=== PATIENT | male | born 1970 | race African-American/Black ===

== ENCOUNTER 2016-07-10 07:35 | Emergency (ER) | payer MEDICAID ==
[~2016-07-10] VITALS: Ht 177.8 cm; Wt 104.5 kg
[~2016-07-10 07:35] MED LIST: AMOXICILLIN 50500 MG PO; BACTRIM DS 8001 TAB PO; BP MED; CEPHALEXIN500 M1 PO; CLEOCIN HC150 MG/CAP PO; CLEOCIN HCL300 MG PO; DIABETES MED; DILAUDID 2MG TAB2 MG PO; DILAUDID 4MG TAB4 MG PO; DOXYCYCLINE 10100 MG PO; FLEXERIL 1010 MG/TAB PO; GLUCOPHAGE1000 MG PO; HCTZ 25MG TAB25 MG PO; HYPERTENSION MED; JANUMET 1000 MG1 TA1 PO; JANUVIA 100MG100 MG PO; JANUVIA100 MG PO; LEVEMIR FLEXPEN SC; LEVEMIR100 U/ML SC; LEVEMIR100 U/ML SQ; LORTAB 5/500 501 TAB PO; MS CONTIN 330 MG/TAB PO; MS CONTIN30 MG PO; MSIR30 MG PO; NAPROSYN500 MG PO; NORCO 325 MG-51 TAB PO; NORVASC 10MG10 MG PO; NORVASC 5MG5 MG/TAB PO; NORVASC5 MG PO; NOVOLOG 100U100 U/M1 SC; NOVOLOG FLEX100 U/ML SC; NOVOLOG FLEX100 U/ML SQ; PEN-VEE K500 MG PO; PERCOCET 325 MG1 TA2 PO; PERCOCET 325 MG1 TAB PO; PHENERGAN 25 TA25 MG PO; PREDNISONE10 MG PO; PRINIVIL10 MG PO; PRINIVIL20 MG PO; PRINIVIL40 MG PO; PROVENTIL0.09 MG/A1 IH; PROVERA 10MG10 MG PO; ROXICODONE 55 MG/TAB PO; ZANTAC 300300 MG PO; ZESTRIL 20MG TA20 MG PO; ZESTRIL40 MG PO; ZITHROMAX Z PA250 MG PO; ZOFRAN 4MG T4 MG/TAB PO
[2016-07-10 07:40] VITALS: TEMP 99.3
[2016-07-10 08:57] LABS: VENOUS BLOOD GAS BE 3.3 (-4-4); VENOUS BLOOD GAS SAO2 70.6 % (60-80)
[2016-07-10 08:58] LABS: VENOUS BLOOD GAS SITE VENIPUNCTURE
[2016-07-10 09:17] LABS: ADJUSTED CALCIUM 9.7 mg/dL (8.4-10.2); ALANINE AMINOTRANSFERASE 56 U/L (21-72); ALBUMIN 4.3 gm/dL (3.5-5.0); ALKALINE PHOSPHATASE 106 U/L (50-136); ANION GAP 13 mmol/L (7-16); BILIRUBIN,TOTAL 0.7 mg/dL (0.0-1.0); BLOOD UREA NITROGEN 8 mg/dL (9-20); CALCIUM 9.9 mg/dL (8.4-10.2); CARBON DIOXIDE 26 mmol/L (22-30); CHLORIDE 96 mmol/L (98-107); CREATININE, serum 0.68 mg/dL (0.66-1.25); GLUCOSE 338 mg/dL (74-106); MAGNESIUM 1.9 mg/dL (1.6-2.3); POTASSIUM 4.5 mmol/L (3.4-5.0); SODIUM 135 mmol/L (137-145)
[2016-07-10] MEDS ORDERED: NORCO 325 MG-51 TAB PO (09:32)
[2016-07-10] MEDS ORDERED: DOXYCYCLINE 10100 MG PO (09:32)
[2016-07-10] MEDS ORDERED: LEVEMIR FLEX100 U/ML SQ (09:32)
[2016-07-10] MEDS ORDERED: NOVOLOG FLEX100 U/ML SQ (09:34)
[2016-07-10] MEDS ORDERED: ZESTRIL40 MG PO (09:34)
[2016-07-10 09:53] VITALS: BP 205/104; PULSE 90
[2016-07-10] MEDS ORDERED: HCTZ 25MG TAB25 MG PO (10:02)
[2016-07-10 11:26] LABS: HEMATOCRIT 44.4 % (42.0-52.0); HEMOGLOBIN 14.2 g/dl (13.5-18.0); MEAN CELL VOLUME 82 fl (80.0-100.0); MEAN CORPUSCULAR HEMOGLOBIN 26 pg (27.0-31.0); MEAN CORPUSCULAR HGB CONC 32 g/dl (33.0-37.0); MEAN PLATELET VOLUME 9.6 fl (7.4-10.4); PLATELET COUNT 380 K/mm3 (130-400); RED BLOOD COUNT 5.42 M/mm3 (4.20-5.60); REDCELL DISTRIBUTION WIDTH-CV 13.2 % (11.5-14.5); WHITE BLOOD COUNT 6.8 K/mm3 (4.8-10.8)
[2016-07-10 11:29] LABS: ADD PATHOLOGY DIFF REVIEW NO
[2016-07-10 11:45] LABS: BAND 4 % (0-10); EOSINOPHIL 3 % (0-4); NEUTROPHILS 53 % (42.0-75.2); PLATELET ESTIMATE INCREASED (NORMAL); TOTAL CELLS COUNTED 100
== END 2016-07-10 09:44 | disposition home or self-care (01) ==
LOC: COL.ER 07:35
PROVIDERS: Emergency Medicine; Physician Assistant
DX: L02.416 Cutaneous abscess of left lower limb (principal); E11.65 Type 2 diabetes mellitus with hyperglycemia; I10 Essential (primary) hypertension; Z79.4 Long term (current) use of insulin; T38.3X6A Underdosing of insulin and oral hypoglycemic [antidiabetic] drugs, initial encounter; T46.5X6A Underdosing of other antihypertensive drugs, initial encounter; Z91.138 Patient's unintentional underdosing of medication regimen for other reason; Z53.29 Procedure and treatment not carried out because of patient's decision for other reasons; F17.210 Nicotine dependence, cigarettes, uncomplicated
CPT/HCPCS: J1170

== ENCOUNTER 2016-09-08 11:06 | Emergency (ER) | payer MEDICAID ==
[~2016-09-08] VITALS: Ht 175.3 cm; Wt 100.0 kg
[~2016-09-08 11:06] MED LIST changes: +LEVEMIR FLEX100 U/ML SQ
[2016-09-08 11:15] VITALS: BP 156/107; PULSE 90; TEMP 99
[2016-09-08] MEDS ORDERED: NORCO 325 MG-51 TAB PO (12:14)
[2016-09-08] MEDS ORDERED: CLEOCIN HCL300 MG PO (12:14)
== END 2016-09-08 12:27 | disposition home or self-care (01) ==
LOC: COL.ER 11:06
DX: K04.7 Periapical abscess without sinus (principal); K03.81 Cracked tooth; E10.9 Type 1 diabetes mellitus without complications; F17.210 Nicotine dependence, cigarettes, uncomplicated; Z79.4 Long term (current) use of insulin; Z86.14 Personal history of Methicillin resistant Staphylococcus aureus infection

== ENCOUNTER 2016-09-20 09:29 | Emergency (ER) | payer MEDICAID ==
[~2016-09-20] VITALS: Ht 175.3 cm; Wt 100.0 kg
[2016-09-20 09:42] VITALS: BP 180/114; PULSE 83; TEMP 98.7
== END 2016-09-20 11:02 | disposition home or self-care (01) ==
LOC: COL.ER 09:29
DX: K02.9 Dental caries, unspecified (principal); E11.9 Type 2 diabetes mellitus without complications; Z79.4 Long term (current) use of insulin

== ENCOUNTER → 2016-12-06 | Outpatient (CLI) | payer MEDICAID | LOC: COL.LAB 09:20 | DX: Z02.89 Encounter for other administrative examinations (principal) ==

== ENCOUNTER → 2017-01-11 | Outpatient (CLI) | payer MEDICAID | LOC: MHCPAIN 10:50 | DX: G89.29 Other chronic pain (principal); M47.817 Spondylosis without myelopathy or radiculopathy, lumbosacral region; M53.3 Sacrococcygeal disorders, not elsewhere classified; M79.2 Neuralgia and neuritis, unspecified; F17.210 Nicotine dependence, cigarettes, uncomplicated | CPT/HCPCS: G0463 ==

== ENCOUNTER 2017-08-20 12:03 | Emergency (ER) | payer MEDICAID ==
[~2017-08-20] VITALS: Ht 177.8 cm; Wt 90.9 kg
[2017-08-20 12:05] VITALS: TEMP 98.3
[2017-08-20] MEDS ORDERED: LEVEMIR100 U/ML SQ (12:17)
[2017-08-20] MEDS ORDERED: LIORESAL 1010 MG/TAB PO (12:18)
[2017-08-20] MEDS ORDERED: NOVOLOG 100U100 U/M1 SQ (12:18)
[2017-08-20 13:10] VITALS: BP 155/105; PULSE 89
[2017-08-20] MEDS ORDERED: NORCO 325 MG-51 TAB PO (13:13)
== END 2017-08-20 13:20 | disposition home or self-care (01) ==
LOC: COL.ER 12:03
DX: S60.221A Contusion of right hand, initial encounter (principal); G89.29 Other chronic pain; M54.5 Low back pain; Z79.4 Long term (current) use of insulin; W22.8XXA Striking against or struck by other objects, initial encounter

== ENCOUNTER 2017-11-28 16:17 | Inpatient (IN) | payer MEDICAID ==
[2017-11-28] VITALS (120 sets, daily range): BP systolic 1140; BP diastolic 89; PULSE 78; TEMP 98.5; O2SAT 98–100
[~2017-11-28] VITALS: Ht 177.8 cm; Wt 91.2 kg
[~2017-11-28 16:17] MED LIST changes: +LIORESAL 1010 MG/TAB PO; +NOVOLOG 100U100 U/M1 SQ
[2017-11-28 17:19] LABS: BASO # 0.1 (0.0-0.2); BASO % 1.1 % (0.0-2.0); EOS # 0.2 (0.0-0.7); EOS % 2.6 % (0-4.0); GRAN # 3.8 (1.4-6.5); GRAN % 53.9 % (42.2-75.2); HEMATOCRIT 40.5 % (42.0-52.0); HEMOGLOBIN 13.6 g/dl (13.5-18.0); LYMPH # 2.4 (1.2-3.4); LYMPH % 34.4 % (20.0-51.0); MEAN CELL VOLUME 81 fl (80.0-100.0); MEAN CORPUSCULAR HEMOGLOBIN 27 pg (27.0-31.0); MEAN CORPUSCULAR HGB CONC 34 g/dl (33.0-37.0); MEAN PLATELET VOLUME 9.8 fl (7.4-10.4); MONO # 0.5 (0.1-0.6); MONO % 7.7 % (1.7-9.3); PLATELET COUNT 245 K/mm3 (130-400); RED BLOOD COUNT 4.98 M/mm3 (4.20-5.60); REDCELL DISTRIBUTION WIDTH-CV 14.5 % (11.5-14.5)
[2017-11-28 17:41] LABS: PROTHROMBIN TIME 11.6 SECONDS (9.7-12.8)
[2017-11-28 17:43] LABS: PARTIAL THROMBOPLASTIN TIME 40.7 SECONDS (26.0-37.0)
[2017-11-28 17:44] LABS: ALANINE AMINOTRANSFERASE 71 U/L (21-72); ALBUMIN 4.7 gm/dL (3.5-5.0); ALKALINE PHOSPHATASE 65 U/L (50-136); ANION GAP 8 mmol/L (7-16); AST,SGOT 46 U/L (15-37); BILIRUBIN,TOTAL 0.5 mg/dL (0.0-1.0); BLOOD UREA NITROGEN 16 mg/dL (9-20); CARBON DIOXIDE 28 mmol/L (22-30); CHLORIDE 97 mmol/L (98-107); CREATININE, serum 1.03 mg/dL (0.66-1.25); GLUCOSE 177 mg/dL (74-106); POTASSIUM 4.1 mmol/L (3.4-5.0); SODIUM 133 mmol/L (137-145); TOTAL PROTEIN 8.6 gm/dL (6.4-8.2)
[2017-11-28 18:00] LABS: TROPONIN-I < 0.012 ng/mL (0.000-0.034)
[2017-11-29] VITALS (623 sets, daily range): BP systolic 141–169; BP diastolic 90–124; PULSE 65–86; TEMP 97.5–99.1; O2SAT 90–100
[2017-11-30 01:56] VITALS: BP 152/95; PULSE 70; TEMP 97.5
[2017-11-30 08:31] VITALS: BP 144/94; PULSE 71; TEMP 98.3
[2017-11-30] MEDS ORDERED: PLAVIX 75MG TAB75 MG PO (09:30)
[2017-11-30] MEDS ORDERED: ASPIRIN 81M81 MG/TA2 PO (09:32)
[2017-11-30] MEDS ORDERED: LIPITOR 40MG TA40 MG PO (09:33)
== END 2017-11-30 12:30 | disposition home or self-care (01) | DRG 65 ==
LOC: COL.ER 16:17 → ICU 18:09 → MEDICAL 11-29 14:05 → ICU 11-29 14:05 → MEDICAL 11-29 14:30
PROVIDERS: Family Medicine
DX: I63.9 Cerebral infarction, unspecified (principal); I67.4 Hypertensive encephalopathy; R47.1 Dysarthria and anarthria; I16.0 Hypertensive urgency; R47.81 Slurred speech; I10 Essential (primary) hypertension; E11.42 Type 2 diabetes mellitus with diabetic polyneuropathy; R29.700 NIHSS score 0; Z79.4 Long term (current) use of insulin; F17.210 Nicotine dependence, cigarettes, uncomplicated
CPT/HCPCS: 99223-AI; 99239; A9585; G8978-GP; G8979-GP; G8996-GN; G8997-GN; G8998-GN; J0360; J1170; J1650; J1815; J2405; J7050

== ENCOUNTER 2018-09-13 08:01 | Emergency (ER) | payer MEDICAID ==
[~2018-09-13] VITALS: Ht 177.8 cm; Wt 95.5 kg
[~2018-09-13 08:01] MED LIST changes: +ASPIRIN 81M81 MG/TA2 PO; +LIPITOR 40MG TA40 MG PO; +PLAVIX 75MG TAB75 MG PO
[2018-09-13 08:07] VITALS: TEMP 98.3
[2018-09-13 10:26] LABS: BASO # 0.1 (0.0-0.2); BASO % 1.5 % (0.0-2.0); EOS # 0.2 (0.0-0.7); EOS % 2.8 % (0-4.0); GRAN # 3.8 (1.4-6.5); GRAN % 46.3 % (42.2-75.2); HEMOGLOBIN 12.2 g/dl (13.5-18.0); LYMPH # 3.3 (1.2-3.4); LYMPH % 41.1 % (20.0-51.0); MEAN CELL VOLUME 81 fl (80.0-100.0); MEAN CORPUSCULAR HEMOGLOBIN 27 pg (27.0-31.0); MEAN CORPUSCULAR HGB CONC 33 g/dl (33.0-37.0); MEAN PLATELET VOLUME 9.2 fl (7.4-10.4); MONO # 0.6 (0.1-0.6); MONO % 7.8 % (1.7-9.3); PLATELET COUNT 345 K/mm3 (130-400); RED BLOOD COUNT 4.55 M/mm3 (4.20-5.60); REDCELL DISTRIBUTION WIDTH-CV 14.5 % (11.5-14.5)
[2018-09-13 10:28] LABS: HEMATOCRIT 36.9 % (42.0-52.0)
[2018-09-13 10:45] LABS: ALANINE AMINOTRANSFERASE 20 U/L (21-72); ALBUMIN 3.9 gm/dL (3.5-5.0); ALKALINE PHOSPHATASE 69 U/L (50-136); ANION GAP 11 mmol/L (7-16); AST,SGOT 54 U/L (15-37); BILIRUBIN,TOTAL 0.6 mg/dL (0.0-1.0); BLOOD UREA NITROGEN 5 mg/dL (9-20); CALCIUM 9.5 mg/dL (8.4-10.2); CARBON DIOXIDE 25 mmol/L (22-30); CHLORIDE 104 mmol/L (98-107); CREATININE, serum 0.67 (0.66-1.25); GLUCOSE 128 mg/dL (74-106); LIPASE 19 U/L (23-300); POTASSIUM 4.3 mmol/L (3.4-5.0); SODIUM 140 mmol/L (137-145); TOTAL PROTEIN 7.4 gm/dL (6.4-8.2)
[2018-09-13 10:46] LABS: C-REACTIVE PROTEIN < 0.5 mg/dL (0.0-0.9)
[2018-09-13 10:53] LABS: TROPONIN-I < 0.012 ng/mL (0.000-0.035)
[2018-09-13] MEDS ORDERED: PHENERGAN 25 TA25 MG PO (11:00)
[2018-09-13] MEDS ORDERED: NAPROXEN 3375 MG/TAB PO (11:00)
[2018-09-13 11:32] VITALS: BP 136/94; PULSE 74
== END 2018-09-13 11:32 | disposition home or self-care (01) ==
LOC: COL.ER 08:01
PROVIDERS: Emergency Medicine
DX: R07.89 Other chest pain (principal); I10 Essential (primary) hypertension; F17.210 Nicotine dependence, cigarettes, uncomplicated; E78.5 Hyperlipidemia, unspecified; E11.9 Type 2 diabetes mellitus without complications; Z79.02 Long term (current) use of antithrombotics/antiplatelets; Z79.4 Long term (current) use of insulin
CPT/HCPCS: J0780; J1885; J7030

== ENCOUNTER 2018-09-20 12:50 | Emergency (ER) | payer MEDICAID ==
[~2018-09-20 12:50] MED LIST changes: +NAPROXEN 3375 MG/TAB PO
[2018-09-20 12:53] VITALS: TEMP 99.5
[2018-09-20 14:31] LABS: BASO % 0.8 % (0.0-2.0); EOS # 0.1 (0.0-0.7); EOS % 1.1 % (0-4.0); GRAN # 2.6 (1.4-6.5); GRAN % 50.4 % (42.2-75.2); HEMATOCRIT 37.7 % (42.0-52.0); HEMOGLOBIN 12.2 g/dl (13.5-18.0); LYMPH # 2.1 (1.2-3.4); LYMPH % 39.3 % (20.0-51.0); MEAN CELL VOLUME 83 fl (80.0-100.0); MEAN CORPUSCULAR HEMOGLOBIN 27 pg (27.0-31.0); MEAN CORPUSCULAR HGB CONC 32 g/dl (33.0-37.0); MEAN PLATELET VOLUME 9.1 fl (7.4-10.4); MONO # 0.4 (0.1-0.6); PLATELET COUNT 378 K/mm3 (130-400); RED BLOOD COUNT 4.57 M/mm3 (4.20-5.60); REDCELL DISTRIBUTION WIDTH-CV 14.4 % (11.5-14.5)
[2018-09-20 14:34] LABS: PROTHROMBIN TIME 12.2 SECONDS (9.7-12.8)
[2018-09-20 14:35] LABS: ALANINE AMINOTRANSFERASE 25 U/L (21-72); ALBUMIN 4.1 gm/dL (3.5-5.0); ALKALINE PHOSPHATASE 72 U/L (50-136); ANION GAP 10 mmol/L (7-16); AST,SGOT 35 U/L (15-37); BILIRUBIN,TOTAL 0.5 mg/dL (0.0-1.0); BLOOD UREA NITROGEN 9 mg/dL (9-20); CALCIUM 9.6 mg/dL (8.4-10.2); CARBON DIOXIDE 26 mmol/L (22-30); CHLORIDE 100 mmol/L (98-107); CREATININE, serum 0.72 (0.66-1.25); GLUCOSE 154 mg/dL (74-106); LIPASE 27 U/L (23-300); POTASSIUM 4.2 mmol/L (3.4-5.0); SODIUM 137 mmol/L (137-145); TOTAL PROTEIN 7.5 gm/dL (6.4-8.2)
[2018-09-20 15:00] LABS: TROPONIN-I < 0.012 ng/mL (0.000-0.035)
[2018-09-20 16:45] VITALS: BP 150/108
[2018-09-20] MEDS ORDERED: FLEXERIL 1010 MG/TAB PO (17:01)
[2018-09-20 17:45] VITALS: PULSE 70
== END 2018-09-20 17:47 | disposition home or self-care (01) ==
LOC: COL.ER 12:52
PROVIDERS: Emergency Medicine
DX: R07.89 Other chest pain (principal); I10 Essential (primary) hypertension; E78.5 Hyperlipidemia, unspecified; F17.210 Nicotine dependence, cigarettes, uncomplicated; Z79.02 Long term (current) use of antithrombotics/antiplatelets; Z79.4 Long term (current) use of insulin
CPT/HCPCS: J1630; J1885; J2060

== ENCOUNTER 2018-10-04 10:40 | Emergency (ER) | payer MEDICAID ==
[~2018-10-04] VITALS: Ht 175.3 cm; Wt 90.9 kg
[2018-10-04 11:32] LABS: BASO # 0.1 (0.0-0.2); BASO % 1.2 % (0.0-2.0); EOS # 0.1 (0.0-0.7); EOS % 1.5 % (0-4.0); GRAN # 4.4 (1.4-6.5); GRAN % 60.1 % (42.2-75.2); HEMATOCRIT 42.2 % (42.0-52.0); HEMOGLOBIN 13.9 g/dl (13.5-18.0); LYMPH # 2.3 (1.2-3.4); MEAN CELL VOLUME 82 fl (80.0-100.0); MEAN CORPUSCULAR HEMOGLOBIN 27 pg (27.0-31.0); MEAN CORPUSCULAR HGB CONC 33 g/dl (33.0-37.0); MEAN PLATELET VOLUME 8.9 fl (7.4-10.4); MONO # 0.4 (0.1-0.6); MONO % 5.8 % (1.7-9.3); PLATELET COUNT 444 K/mm3 (130-400); RED BLOOD COUNT 5.16 M/mm3 (4.20-5.60); REDCELL DISTRIBUTION WIDTH-CV 14.3 % (11.5-14.5)
[2018-10-04 11:41] LABS: PROTHROMBIN TIME 11.7 SECONDS (9.7-12.8)
[2018-10-04 11:44] LABS: ALANINE AMINOTRANSFERASE 28 U/L (21-72); ALBUMIN 4.7 gm/dL (3.5-5.0); ALKALINE PHOSPHATASE 82 U/L (50-136); ANION GAP 13 mmol/L (7-16); AST,SGOT 46 U/L (15-37); BILIRUBIN,TOTAL 0.6 mg/dL (0.0-1.0); BLOOD UREA NITROGEN 10 mg/dL (9-20); CALCIUM 10.3 mg/dL (8.4-10.2); CARBON DIOXIDE 24 mmol/L (22-30); CHLORIDE 100 mmol/L (98-107); CREATININE, serum 0.78 (0.66-1.25); GLUCOSE 196 mg/dL (74-106); POTASSIUM 4.4 mmol/L (3.4-5.0); SODIUM 137 mmol/L (137-145)
[2018-10-04 11:59] LABS: TROPONIN-I < 0.012 ng/mL (0.000-0.035)
[2018-10-04] MEDS ORDERED: FLEXERIL 1010 MG/TAB PO (12:48)
[2018-10-04] MEDS ORDERED: NORVASC 5MG5 MG/TAB PO (12:58)
[2018-10-04 13:06] VITALS: BP 164/119; PULSE 108; TEMP 99.1
== END 2018-10-04 13:25 | disposition home or self-care (01) ==
LOC: COL.ER 10:40
PROVIDERS: Emergency Medicine
DX: R07.89 Other chest pain (principal); I10 Essential (primary) hypertension; E78.5 Hyperlipidemia, unspecified; F17.210 Nicotine dependence, cigarettes, uncomplicated; Z79.4 Long term (current) use of insulin; Z79.02 Long term (current) use of antithrombotics/antiplatelets
CPT/HCPCS: J1885; J2060; J2270

== ENCOUNTER 2021-08-24 08:19 | Emergency (ER) | payer MEDICAID ==
[~2021-08-24] VITALS: Ht 177.8 cm; Wt 113.6 kg
[2021-08-24 08:27] VITALS: TEMP 98.5
[2021-08-24] MEDS ORDERED: NAPROSYN500 MG PO (09:50)
[2021-08-24] MEDS ORDERED: ROBAXIN 50500 MG/TAB PO (09:50)
[2021-08-24 10:05] VITALS: BP 170/111; PULSE 82
== END 2021-08-24 10:05 | disposition home or self-care (01) ==
LOC: COL.ER 08:19
DX: M54.50 Low back pain, unspecified (principal); G89.29 Other chronic pain; Z87.39 Personal history of other diseases of the musculoskeletal system and connective tissue
CPT/HCPCS: J1885

== ENCOUNTER 2021-11-23 09:32 | Emergency (ER) | payer MEDICAID ==
[~2021-11-23] VITALS: Ht 177.8 cm; Wt 109.1 kg
[~2021-11-23 09:32] MED LIST changes: +ROBAXIN 50500 MG/TAB PO
[2021-11-23 09:57] VITALS: TEMP 98
[2021-11-23 10:46] LABS: COLLECTION METHOD CLEAN CATCH
[2021-11-23 11:00] LABS: SQUAMOUS EPITHELIAL 0-2 /hpf (0-10); URINE BACTERIA Rare /hpf (NONE SEEN); URINE RBC 0-2 /hpf (0-2)
[2021-11-23 11:01] LABS: URINE COLOR Yellow (YELLOW)
[2021-11-23 11:02] LABS: URINE APPEARANCE Clear (CLEAR/HAZY); URINE BLOOD Negative (NEGATIVE); URINE GLUCOSE 2+ (NEGATIVE); URINE KETONE Negative (NEGATIVE); URINE NITRATE Negative (NEGATIVE); URINE PROTEIN(semi-quant) TRACE (NEGATIVE); URINE UROBILINOGEN 0.2 E.U/dL (0.2-1.0)
[2021-11-23] MEDS ORDERED: NORCO 325 MG-51 TAB PO (11:58)
[2021-11-23] MEDS ORDERED: FLOMAX 0.40.4 MG/CAP PO (11:58)
[2021-11-23] MEDS ORDERED: LEVSIN0.125 M1 PO (11:58)
[2021-11-23 12:10] VITALS: BP 140/105; PULSE 65
== END 2021-11-23 12:10 | disposition home or self-care (01) ==
LOC: COL.ER 09:32
PROVIDERS: Emergency Medicine
DX: R39.198 Other difficulties with micturition (principal); E11.9 Type 2 diabetes mellitus without complications; E66.9 Obesity, unspecified; F17.210 Nicotine dependence, cigarettes, uncomplicated; Z68.34 Body mass index [BMI] 34.0-34.9, adult; Z28.311 Partially vaccinated for COVID-19; Z79.4 Long term (current) use of insulin
CPT/HCPCS: J1885

== ENCOUNTER 2022-01-06 09:22 | Emergency (ER) | payer MEDICAID ==
[~2022-01-06] VITALS: Ht 172.7 cm; Wt 108.6 kg
[~2022-01-06 09:22] MED LIST changes: +FLOMAX 0.40.4 MG/CAP PO; +LEVSIN0.125 M1 PO
[2022-01-06 09:40] VITALS: BP 129/88; TEMP 98.2
[2022-01-06] MEDS ORDERED: LIDOCAINE HCL100 M1 MM (10:45)
[2022-01-06 11:23] VITALS: PULSE 78
[2022-01-06 11:53] LABS: STREP SCREEN NEGATIVE
[2022-01-11] MEDS ORDERED: NORCO 325 MG-51 TAB PO (15:36)
[2022-01-11] MEDS ORDERED: MEDROL 4MG DOSPA4 MG PO (15:36)
== END 2022-01-06 11:23 | disposition home or self-care (01) ==
LOC: COL.ER 09:22
PROVIDERS: Physician Assistant
DX: M54.50 Low back pain, unspecified (principal); G89.29 Other chronic pain; K12.0 Recurrent oral aphthae; F17.210 Nicotine dependence, cigarettes, uncomplicated; Z87.39 Personal history of other diseases of the musculoskeletal system and connective tissue; Z28.311 Partially vaccinated for COVID-19
CPT/HCPCS: J2360

== ENCOUNTER 2022-04-11 06:56 | Emergency (ER) | payer MEDICAID ==
[~2022-04-11] VITALS: Ht 175.3 cm; Wt 107.3 kg
[~2022-04-11 06:56] MED LIST changes: +CIPRO 500MG TA500 MG PO; +LIDOCAINE HCL100 M1 MM; +MEDROL 4MG DOSPA4 MG PO; +MOTRIN 800800 MG/TAB PO
[2022-04-11 06:59] VITALS: TEMP 98
[2022-04-11 08:04] LABS: BASO # 0.1 K/mm3 (0.0-0.2); BASO % 1.3 % (0.0-2.0); EOS # 0.2 K/mm3 (0.0-0.7); EOS % 2.7 % (0.0-4.0); GRAN # 3.1 K/mm3 (1.4-6.5); GRAN % 45.3 % (42.2-75.2); HEMATOCRIT 46.2 % (42.0-52.0); HEMOGLOBIN 15.4 g/dl (13.5-18.0); LYMPH # 2.9 K/mm3 (1.2-3.4); LYMPH % 42.6 % (20.0-51.0); MEAN CELL VOLUME 81 fl (80.0-100.0); MEAN CORPUSCULAR HEMOGLOBIN 27 pg (27-31); MEAN CORPUSCULAR HGB CONC 33 g/dl (33.0-37.0); MEAN PLATELET VOLUME 9.8 fl (7.4-10.4); MONO # 0.5 K/mm3 (0.1-0.6); PLATELET COUNT 277 K/mm3 (130-400); RED BLOOD COUNT 5.72 M/mm3 (4.20-5.60); REDCELL DISTRIBUTION WIDTH-CV 14.1 % (11.5-14.5)
[2022-04-11 08:16] LABS: ALBUMIN 4.4 gm/dL (3.5-5.0); BILIRUBIN,TOTAL 0.7 mg/dL (0.2-1.2); CALCIUM 9.8 mg/dL (8.4-10.2); CREATININE, serum 1.3 mg/dL (0.72-1.25); TOTAL PROTEIN 8.2 gm/dL (6.2-8.1)
[2022-04-11 08:34] LABS: COLLECTION METHOD CLEAN CATCH
[2022-04-11] MEDS ORDERED: TENORMIN100 MG PO (08:50)
[2022-04-11] MEDS ORDERED: GLUCOTROL10 MG PO (08:51)
[2022-04-11] MEDS ORDERED: HCTZ 25MG TAB25 MG PO (08:52)
[2022-04-11 08:54] LABS: MUCOUS Present (NOT PRESENT); SQUAMOUS EPITHELIAL 0-2 /hpf (0-10); URINE BACTERIA None Seen /hpf (NONE SEEN)
[2022-04-11 08:55] LABS: PH 5.5 (5.0-8.5); URINE APPEARANCE Clear (CLEAR/HAZY); URINE BLOOD TRACE-INTACT (NEGATIVE); URINE COLOR Yellow (YELLOW); URINE GLUCOSE TRACE (NEGATIVE); URINE KETONE Negative (NEGATIVE); URINE NITRATE Negative (NEGATIVE); URINE PROTEIN(semi-quant) 2+ (NEGATIVE); URINE UROBILINOGEN 0.2 E.U/dL (0.2-1.0)
[2022-04-11] MEDS ORDERED: LEVAQUIN 5500 MG/TA1 PO (08:55)
[2022-04-11] MEDS ORDERED: CIALIS5 MG (08:58)
[2022-04-11] MEDS ORDERED: NORCO 325 MG-51 TAB PO (09:34)
[2022-04-11 09:50] VITALS: BP 170/100; PULSE 68
== END 2022-04-11 09:51 | disposition home or self-care (01) ==
LOC: COL.ER 06:56
PROVIDERS: Emergency Medicine
DX: M54.50 Low back pain, unspecified (principal); R94.5 Abnormal results of liver function studies; R79.89 Other specified abnormal findings of blood chemistry; R10.30 Lower abdominal pain, unspecified; E66.9 Obesity, unspecified; E11.9 Type 2 diabetes mellitus without complications; Z79.4 Long term (current) use of insulin; Z68.34 Body mass index [BMI] 34.0-34.9, adult; Z28.311 Partially vaccinated for COVID-19
CPT/HCPCS: J2270; J2405; J7040; Q9967

== ENCOUNTER 2022-05-12 07:17 | Day surgery (SDC) | payer MEDICAID ==
[~2022-05-12] VITALS: Ht 177.8 cm; Wt 108.6 kg
[2022-05-12] VITALS (7 sets, daily range): BP systolic 101–152; BP diastolic 71–95; PULSE 72–132; TEMP 97.7–98.2
[~2022-05-12 07:17] MED LIST changes: +CIALIS5 MG; +GLUCOTROL10 MG PO; +LEVAQUIN 5500 MG/TA1 PO; +PROTONIX 40MG T40 MG PO; +TENORMIN100 MG PO
[2022-05-12 07:57] LABS: TRICYCLIC ANTIDEPRESS URINE POSITIVE
--- NOTE | 2022-05-12 08:00 | NUR ---
LABS RESULTED AND IVF STARTED AND PRE OP MEDICATIONS GIVEN ORDERED. SIDERAILS UP X2 AND CALL LIGHT IN REACH. FAMILY IN ROOM.
[2022-05-12 08:17] LABS: HEMATOCRIT 42.3 % (42.0-52.0); HEMOGLOBIN 13.9 g/dl (13.5-18.0); MEAN CELL VOLUME 80 fl (80.0-100.0); MEAN CORPUSCULAR HEMOGLOBIN 26 pg (27-31); MEAN CORPUSCULAR HGB CONC 33 g/dl (33.0-37.0); MEAN PLATELET VOLUME 8.8 fl (7.4-10.4); PLATELET COUNT 259 K/mm3 (130-400); RED BLOOD COUNT 5.27 M/mm3 (4.20-5.60); REDCELL DISTRIBUTION WIDTH-CV 14.7 % (11.5-14.5)
[2022-05-12 08:20] LABS: PROTHROMBIN TIME 11.8 SECONDS (9.7-12.8)
[2022-05-12 08:24] LABS: ALBUMIN 4.1 gm/dL (3.5-5.0); BILIRUBIN,TOTAL 0.5 mg/dL (0.2-1.2); CALCIUM 9.7 mg/dL (8.4-10.2); CREATININE, serum 1.06 mg/dL (0.72-1.25); POTASSIUM 3.9 mmol/L (3.5-4.5); TOTAL PROTEIN 7.3 gm/dL (6.2-8.1)
[2022-05-12] MEDS ORDERED: OZEMPIC2 MG/0.75 SQ (08:47)
[2022-05-12] MEDS ORDERED: FLEXERIL 1010 MG/TAB PO (08:48)
[2022-05-12] MEDS ORDERED: PERCOCET 325 MG1 TA2 PO (08:49)
[2022-05-12] MEDS ORDERED: NOVOLIN N100 UNIT/1 SQ (08:52)
--- NOTE | 2022-05-13 01:28 | NUR ---
AT THE BEGINNING OF THE SHIFT THE PATIENT WAS COMPLAINING HE COULD NOT BREATH. PCT GOT PTS VITAL SIGNS AND ALL VITALS WERE WITHIN NORMAL LIMITS ASIDE FROM HEART RATE WAS SLIGHTLY TACHYCARDIC IN THE 115 RANGE. RN AT BEDSIDE TO DO AN ASSESSMENT AND THE PATIENT BEGAN SCREAMING AT THIS RN AND WOULD NOT ALLOW THE RN TO COMPLETE THE ASSESSMENT, THE RN TOLD THE PATIENT THAT BEING RUDE WAS NOT GOING TO GET ANYTHING DONE QUICKER. THE PATIENT THEN STATED " i DO NOT CARE, I COULD CARE LESS HOW ABOUT YOU GET THE FUCK OUT, SEND SOMEONE ELSE IN." RN NOTIFIED CHARGE NURSE AND MEAT AND SEAFOOD CLERK WHO CAME TO BEDSIDE. ONCALL UROLOGY ALSO CAME TO BEDSIDE WITH NEW ORDERS PLACED FOR PAIN. AROUND 2214 RN CALLED TO BEDSIDE BY PCT THE PATIENTS INCISIONS WERE BLEEDING. 2 OF THE PATIENTS 6 INCISIONS WERE BLEEDING AND THE OTHER 4 WERE BEGINNING TO SEPARATE AND BLEED. PRESSURE APPLIED TO L SIDE OF ABD WHERE THE MOST BLOOD WAS COMING FROM. THE FAMILY AT THE BEDSIDE STATED SHE THINKS ITS BECAUSE THE PATIENT KEEPS SHOOTING UP AND MAKING SUDDEN MOVEMENTS. RN CALLED OPERATIONAL INTELLIGENCE ANALYST UROLOGY. PT PLACED IN AN ABDOMINAL BINDER WHICH THE PATIENT EXPRESSED UNKIND WORDS TO THE STAFF ABOUT HAVING TO WEAR. NO OTHER ORDERS PLACED. PTS HEART RATE STILL ELEVATED INTO THE 120S.
[2022-05-13 03:54] VITALS: BP 104/83; PULSE 122; TEMP 97.9
--- NOTE | 2022-05-13 04:15 | NUR ---
PT RECEIVED LAST DOSE OF IV MORPHINE 3MG AT 2316, AT THIS TIME THE PATIENT THEN SLEPT COMFORTABLY WITH NO DISRUPTIONS OR OUTBURSTS. AT 323 THE PATIENT REQUESTED MORE MORPHINE RN PROVIDED 2MG OF MORPHINE. 334 PT CALLING OUT AGAIN STATING THAT THE MORPHINE HAS NOT BEEN WORKING FOR HIM AND HE NEEDS DILAUDID BECAUSE HE KNOWNS WHAT WORKS FOR HIM AND MORPHINE DOES NOT WORK AT ALL. RN EDUCATED THE PATIENT THAT HE WENT OVER 4 HOURS WITHOUT PAIN MEDICATION AND WAS SLEEPING CAMLY EACH TIME STAFF CHECKED ON HIM IN THAT 4 HOURS. PT REFUSED TO BELIEVE THIS AND STATED "GET ME DILAUDID" RN AGAIN EDUCATED THE PATIENT THAT WE DO NOT HAVE ORDERS FOR DILAUDID AND WE HAVE ORDERS FOR MORPHINE WHICH HAVE BEEN ABLE TO LET THE PATIENT REST COMFORTABLY SO HE NEEDS TO GIVE THE MEDICATION SOME TIME TO WORK THEN WE CAN VISIT IF HE NEEDS ADDITIONAL PAIN MEDICATION. PT ALSO HAS ABDOMINAL BINDER OFF AT THIS TIME. WHEN RN ATTEMPTS TO PUT BINDER BACK ON PATIENT BECOMES AGGRESSIVE AND STATES HE CAN NOT BREATH AND HE WILL NOT BE KEEPING THAT ON. RN ONCE AGAIN EDUCATED THE PATIENT THAT HE IS BLEEDING FROM HIS INCISION SITE AND NEEDS THE BINDER ON TO APPLY PRESSURE TO PREVENT BLEEDING. PT REFUSES THIS TEACHING AND STATES THAT EACH TIME THE BINDER IS PLACED HE BEGINS TO PANIC. RN EDUCATED THE PATIENT THAT HE ALSO SLEPT FOR 4 HOURS WITH THE BINDER INTACT AND DID NOT PANIC AT THIS TIME. PT REFUSED TO BELIEVE THIS WELL. PT AGAIN REMAINED AGITATED, RN ADMINISTERED IV ATIVAN PRN PER ORDER. BETTING AGENCY MANAGER GOT ADDITIONAL BINDER PER PATIENTS REQUEST SO IT WAS NOT SO TIGHT ON THE PATIENT. WHEN PLACED PATIENT STILL STATED HE COULD NOT BREATH AND IT WAS TOO TIGHT. THE BINDER WAS LOOSE ENOUGH FOR THE RN TO EASILY FIT HER FINGERS UNDER THE BINDER, PT ONCE AGAIN EDUCATED ON THE IMPORTANCE AND THE PATIENT STATED THAT HE SIMPLY DID NOT CARE AND WOULD NOT BE DOING IT. RN WAS ABLE TO GET THE BINDER IN PLACE ONCE THE ATIVAN KICKED IN. PT CURRENTLY RESTING CALMLY IN BED.
[2022-05-13 07:10] VITALS: BP 97/74; PULSE 108; TEMP 97.9
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
--- NOTE | 2022-05-13 10:35 | NUR ---
PATIENT'S FIANCE' JUST CALLED OUT, PATIENT VOMITED ALL OVER HIMSELF, BED AND FLOOR. GAVE PRN ZOFRAN. PATIENT ALSO EXHIBITING ANXIETY, GAVE PRN ATIVAN. UPON RESTARTED IV FLUIDS. UPON CLEANING PATIENT UP, NURSING STAFF FOUND 2 NICOTINE POUCHES FROM HOME IN HIS PUKE. PATIENT ALSO HAS A NICOTINE PATCH ON, SEE MAR. NOTIFIED AND IS COMING UP TO TALK TO PATIENT TO JENNY'.
[2022-05-13 11:12] VITALS: BP 107/70; PULSE 110; TEMP 99.1
[2022-05-13] MEDS ORDERED: DILAUDID 2MG TAB2 MG PO (11:46)
--- NOTE | 2022-05-13 12:18 | NUR ---
Initial visit: Chemical Treatment Operator stopped by room on rounds. Pt was resting and content. Pt has no needs right now. Chemical Treatment Operator will follow up as needed.
--- NOTE | 2022-05-13 13:35 | NUR ---
PATIENT'S BS WAS RECHECKED AND STILL OVER 400. PATIENT REPORTS HE HASN'T ATE MUCH BUT HASN'T BEEN STARTED BACK ON HIS HOME MEDS. NOTIFIED, SEE NEW ORDERS. HOME DIABETIC MEDS AND SSI GIVEN. WILL RECHECK BS IN AN HOUR.
--- NOTE | 2022-05-13 15:10 | NUR ---
PATIENT'S BLOOD SUGAR STILL GREATER THAN 400, SEE FLOWSHEET. NOTIFIED , GAVE ADDITIONAL INSULIN WITH SSI PER UROLOGY. WILL RECHECK IN AN HOUR.
--- NOTE | 2022-05-13 15:29 | NUR ---
Childcare Worker met with Patient and his at bedside to conduct Care Managment Assessment and discuss discharge planning. Patient reported that he is to discharge on this day home without needs. Patient lives in a privatly owned residence and is established with PCP MAKENZIE Walters for insurance, and denies the use of O2, DME, and home health services prior to admission. Patient is independent with his ADLs/IADls.
[2022-05-13 15:43] VITALS: BP 121/61; PULSE 110; TEMP 98.3
--- NOTE | 2022-05-13 16:00 | NUR ---
PATIENT'S SECOND BS RECHECK IS STILL OVER 500. BS IS NOW 502, DOWN FROM 534. NOTIFIED AGAIN. SEE ORDERS FOR HOSPITALIST CONSULT.
--- NOTE | 2022-05-13 16:30 | NUR ---
PATIENT GIVEN IV INSULIN FOR ELEVATED GLUCOSE, SEE PILO. UROLOGY & HOSPITALIST AGREE PATIENT CAN NOT DISCHARGE WITH HIGH GLUCOSE LEVELS. PATIENT AND FIANCE INFORMED OF DISCHARGE CANCELED. PATIENT WAS NOT HAPPY AND STATED HE DOESN'T NOT WANT TO STAY ANOTHER NIGHT. PROVIDER NOTIFIED BUT PATIENT DOES NOT MEET CRITERIA FOR DISCHARGE. PATIENT MAY CHOOSE TO LEAVE AMA, PROVIDERS AWARE.
--- NOTE | 2022-05-13 17:24 | NUR ---
NOW AT BEDSIDE
--- NOTE | 2022-05-13 18:55 | NUR ---
NURSING ATTEMPTED TO EDUCATE PATIENT ABOUT NEED FOR CONTINUED MEDICAL TREATMENT, PATIENT REFUSED AND STILL WANTS TO LEAVE AMA. DC'D LEFT HAND IV AND COVERED SITE WITH GAUZE & COBAN. PATIENT DISCHARGING WITH [facility] AND KNOWS HE NEEDS TO F/U WITH UROLOGY. PATIENT ALREADY SHOWN EARLIER TODAY HOW TO DO CATH CARES. PROVIDERS AWARE OF PATIENT LEAVING AMA. PATIENT SIGNED AMA FORM. PATIENT LEFT FACILITY WITH FIANCE.
== END 2022-05-13 18:55 | disposition left against medical advice (07) ==
LOC: SDCO 07:17 → SURG 14:32 → SDCO 05-13 18:55
PROVIDERS: Nurse Anesthetist, Certified Registered; Registered Nurse
DX: C61 Malignant neoplasm of prostate (principal); F41.9 Anxiety disorder, unspecified; D17.39 Benign lipomatous neoplasm of skin and subcutaneous tissue of other sites; E78.5 Hyperlipidemia, unspecified; E11.65 Type 2 diabetes mellitus with hyperglycemia; Z79.4 Long term (current) use of insulin; Z79.899 Other long term (current) drug therapy
CPT/HCPCS: OP; A4314; J0690; J1100; J1170; J1815; J1885; J2060; J2250; J2270; J2370; J2405; J2704; J3010; J7030; J7120

== ENCOUNTER 2023-03-25 18:59 | Emergency (ER) | payer MEDICAID ==
[~2023-03-25] VITALS: Ht 175.3 cm; Wt 88.6 kg
[~2023-03-25 18:59] MED LIST changes: +CARAFATE 1GM1 G PO; +CEFTIN500 MG PO; +LYRICA 150MG C150 MG PO; +NOVOLIN N100 UNIT/1 SQ; +OZEMPIC2 MG/0.75 SQ
[2023-03-25 19:02] VITALS: TEMP 98.3
[2023-03-25] MEDS ORDERED: OMNICEF 300MG300 MG PO (21:18)
[2023-03-25 21:44] VITALS: BP 141/98; PULSE 100
== END 2023-03-25 21:44 | disposition home or self-care (01) ==
LOC: COL.ER 18:59
DX: J01.90 Acute sinusitis, unspecified (principal); B96.89 Other specified bacterial agents as the cause of diseases classified elsewhere; J02.9 Acute pharyngitis, unspecified; J04.0 Acute laryngitis; B30.9 Viral conjunctivitis, unspecified

== ENCOUNTER 2023-06-29 21:08 | Emergency (ER) | payer MEDICAID ==
[~2023-06-29] VITALS: Ht 177.8 cm; Wt 99.5 kg
[~2023-06-29 21:08] MED LIST changes: +OMNICEF 300MG300 MG PO
[2023-06-29] MEDS ORDERED: Home HYDROcodone/Acetaminophen 5/325 MG #4 TABS/PACK PO ONE (21:45)
[2023-06-29 22:00] VITALS: BP 175/103; PULSE 91; TEMP 98.8
== END 2023-06-29 22:00 | disposition home or self-care (01) ==
LOC: COL.ER 21:08
DX: K08.89 Other specified disorders of teeth and supporting structures (principal); F17.210 Nicotine dependence, cigarettes, uncomplicated; Z98.818 Other dental procedure status

== ENCOUNTER → 2023-12-19 | Outpatient (CLI) | payer MEDICAID ==
[~2023-12-19] MED LIST changes: +PEPCID 20MG TAB20 MG PO
== END ==
LOC: COL.RAD 11:56
DX: M43.17 Spondylolisthesis, lumbosacral region (principal); M48.061 Spinal stenosis, lumbar region without neurogenic claudication; M51.369 Other intervertebral disc degeneration, lumbar region without mention of lumbar back pain or lower extremity pain; M48.07 Spinal stenosis, lumbosacral region; E88.2 Lipomatosis, not elsewhere classified; M51.360 Other intervertebral disc degeneration, lumbar region with discogenic back pain only; M47.817 Spondylosis without myelopathy or radiculopathy, lumbosacral region; M47.816 Spondylosis without myelopathy or radiculopathy, lumbar region; M48.062 Spinal stenosis, lumbar region with neurogenic claudication

== ENCOUNTER 2023-12-21 08:19 | Emergency (ER) | payer MEDICAID ==
[~2023-12-21] VITALS: Ht 175.3 cm; Wt 95.5 kg
[~2023-12-21 08:19] MED LIST changes: -PEPCID 20MG TAB20 MG PO
[2023-12-21 08:20] VITALS: TEMP 984
[2023-12-21] MEDS ORDERED: fentaNYL 50 MCG/ML 2 ML VIAL IV ONE (09:00)
[2023-12-21] MEDS ORDERED: Ondansetron 4 MG/2 ML VIAL IV ONE (09:00)
[2023-12-21] MEDS ORDERED: NS 1,000 ML IV ONE (09:00)
[2023-12-21 09:28] LABS: BASO # 0.1 K/mm3 (0.0-0.2); BASO % 1.1 % (0.0-2.0); EOS # 0.2 K/mm3 (0.0-0.7); EOS % 3.1 % (0.0-4.0); GRAN # 3.4 K/mm3 (1.4-6.5); GRAN % 64.5 % (42.2-75.2); HEMATOCRIT 38.6 % (42.0-52.0); HEMOGLOBIN 12.7 g/dl (13.5-18.0); LYMPH # 1.1 K/mm3 (1.2-3.4); LYMPH % 21.5 % (20.0-51.0); MEAN CELL VOLUME 85 fl (80.0-100.0); MEAN CORPUSCULAR HEMOGLOBIN 28 pg (27-31); MEAN CORPUSCULAR HGB CONC 33 g/dl (33.0-37.0); MEAN PLATELET VOLUME 9.3 fl (7.4-10.4); MONO # 0.5 K/mm3 (0.1-0.6); MONO % 9.4 % (1.7-9.3); PLATELET COUNT 301 K/mm3 (130-400); RED BLOOD COUNT 4.52 M/mm3 (4.20-5.60)
[2023-12-21 10:00] LABS: ALBUMIN 4.2 g/dL (3.5-5.0); BILIRUBIN,TOTAL 0.3 mg/dL (0.2-1.2); CALCIUM 10.3 mg/dL (8.4-10.2); CREATININE, serum 1.69 mg/dL (0.72-1.25); POTASSIUM 4.7 mEq/L (3.5-4.5); TOTAL PROTEIN 8.4 g/dl (6.2-8.1)
[2023-12-21] MEDS ORDERED: fentaNYL 50 MCG/ML 2 ML VIAL IM ONE (10:00)
[2023-12-21 10:06] LABS: TROPONIN-I 0.011 ng/mL (0.00-0.033)
[2023-12-21 10:16] LABS: COLLECTION METHOD CATHETER
[2023-12-21 10:27] LABS: URINE APPEARANCE CLEAR (CLEAR/HAZY); URINE BLOOD NEGATIVE (NEGATIVE); URINE COLOR YELLOW (YELLOW); URINE GLUCOSE 3+ (NEGATIVE); URINE KETONE NEGATIVE (NEGATIVE); URINE NITRATE NEGATIVE (NEGATIVE); URINE PROTEIN(semi-quant) 1+ (NEGATIVE)
[2023-12-21 11:30] VITALS: BP 164/115; PULSE 70
[2023-12-21] MEDS ORDERED: PEPCID 20MG TAB20 MG PO (11:30)
== END 2023-12-21 11:44 | disposition home or self-care (01) ==
LOC: COL.ER 08:19
PROVIDERS: Family Medicine
DX: K21.9 Gastro-esophageal reflux disease without esophagitis (principal); R73.9 Hyperglycemia, unspecified; F17.200 Nicotine dependence, unspecified, uncomplicated
CPT/HCPCS: J3010